=== PATIENT | male | born 1985 | race Caucasian/White ===

== ENCOUNTER 2021-07-22 20:36 | Emergency (ER) | payer OTHER ==
[2021-07-22] MEDS ORDERED: Ketorolac 30 MG/ML SDV IM ONE (21:10)
--- NOTE | 2021-07-22 21:38 | EDM.PDOC ---
ED HPI GENERAL MEDICAL PROBLEM - General Chief Complaint: Headache Stated Complaint: headache Time Seen by Provider: 07/22/21 20:55 Source of Information: Reports: Patient, RN History Limitations: Reports: No Limitations - History of Present Illness INITIAL COMMENTS - FREE TEXT/NARRATIVE: Patient here with second of her headache in his life. First headache was just over 10 years ago. He does not recall all of the ends coming to the headache. He does state he made it to the ER. The doctor said something to him. He passed out and all he remembers from that point forward with his parents picking him up in the ER. Today is day 4 of a continuous pulse/pressure in the forehead region. He has not taken anything for it as he has never taken anything for pain before. Nothing seems to make it better nothing seems to make it worse. He said it has been consistent for 4 days and does not seem to be letting up. Patient is not Covid vaccinated. He denies sick contacts. 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 Onset: Sudden Onset Date: 07/18/21 Duration: Constant Location: Reports: Head Quality: Reports: Ache, Pressure Severity: Severe Improves with: Reports: None Worsens with: Reports: None Context: Reports: Other (Patient has no known sick contacts. He has not had Covid. He does state he had a incident at the beginning of the initial Covid virus where he was down and out for about 2 weeks. He does not know if this was Covid or not. He has not been vaccinated.) Associated Symptoms: Reports: No Other Symptoms Middle Frontal Headache Pain Score (Numeric/FACES): 4 - Related Data Allergies Allergy/AdvReac Type Severity Reaction Status Date / Time azithromycin Allergy Nausea Verified 07/22/21 20:52 Home Meds: Home Meds NK [No Known Home Meds] 07/22/21 [History] Past Medical History Musculoskeletal History: Reports: Fracture Other Musculoskeletal History: broken mandible - Infectious Disease History Infectious Disease History: Reports: Chicken Pox - Past Surgical History GI Surgical History: Reports: Hernia, Abdominal, Hernia, Inguinal Other GI Surgeries/Procedures: laceration of the bladder , 2003 Social & Family History - Tobacco Use Tobacco Use Status *Q: Current Every Day Tobacco User Years of Tobacco use: 15 Packs/Tins Daily: 1 - Caffeine Use Caffeine Use: Reports: Coffee, Soda Caffeine Use Comment: 20oz coffee daily - Recreational Drug Use Recreational Drug Use: No ED ROS GENERAL - Review of Systems Review Of Systems: See Below Constitutional: Reports: No Symptoms HEENT: Denies: Hearing Loss, Vision Change Respiratory: Reports: No Symptoms Cardiovascular: Reports: No Symptoms Musculoskeletal: Reports: No Symptoms Skin: Reports: No Symptoms Neurological: Reports: Headache. Denies: Confusion, Dizziness, Numbness, Paresthesia, Pre-Existing Deficit, Seizure, Syncope, Tingling, Tremors, Trouble Speaking, Difficulty Walking, Weakness, Change in Speech, Gait Disturbance Psychiatric: Reports: No Symptoms Hematologic/Lymphatic: Reports: No Symptoms Immunologic: Reports: No Symptoms - Physical Exam Exam: See Below Exam Limited By: No Limitations General Appearance: Alert, WD/WN, Moderate Distress Eye Exam: Bilateral Eye: EOMI, Normal Inspection, PERRL Ears: Normal External Exam, Normal Canal, Hearing Grossly Normal, Normal TMs Nose: Normal Inspection, Normal Mucosa, No Blood Throat/Mouth: Normal Inspection, Normal Lips, Normal Teeth, Normal Gums, Normal Oropharynx, Normal Voice, No Airway Compromise Head Exam: Atraumatic, Normocephalic. No: Scalp Lacerations, Scalp Swelling, Scalp Abrasions, Scalp Tenderness, Facial Tenderness, Sinus Tenderness Neck: Normal Inspection, Supple, Non-Tender, Full Range of Motion Respiratory/Chest: No Respiratory Distress, Lungs Clear, Normal Breath Sounds, No Accessory Muscle Use, Chest Non-Tender Cardiovascular: Normal Peripheral Pulses, Regular Rate, Rhythm, No Edema, No Gallop, No JVD, No Murmur, No Rub GI/Abdominal: Normal Bowel Sounds, Soft, Non-Tender, No Organomegaly, No Distention, No Abnormal Bruit, No Mass, Pelvis Stable Neuro Exam (Abbreviated): Alert, Oriented, CN II-XII Intact, Normal Cognition, Normal Gait, Normal Reflexes, No Motor/Sensory Deficits Back Exam: Normal Inspection, Full Range of Motion Extremities: Normal Inspection, Normal Range of Motion, Non-Tender, No Pedal Edema, Normal Capillary Refill Psychiatric: Normal Affect, Normal Mood Skin Exam: Warm, Dry, Intact, Normal Color, No Rash Course - Vital Signs Last Recorded V/S: Last Vital Signs Temp 36.4 C 07/22/21 20:59 Pulse 87 07/22/21 20:59 Resp 16 07/22/21 20:59 BP 158/86 H 07/22/21 20:59 Pulse Ox 98 07/22/21 20:59 - Orders/Labs/Meds Orders: CT per radiology shows no abnormalities. No bleeds. Meds: Medications Discontinued Medications Generic Name Dose Route Start Last Admin Trade Name Tuyet PRN Reason Stop Dose Admin Ketorolac Tromethamine 30 mg 07/22/21 21:10 07/22/21 21:23 Ketorolac 30 Mg/Ml Sdv IM 07/22/21 21:11 30 mg ONETIME ONE Administration - Radiology Interpretation Free Text/Narrative:: CT per radiology read shows no acute intracranial abnormalities. CT Results Date: 07/22/21 - Re-Assessments/Exams Free Text/Narrative Re-Assessment/Exam: 07/22/21 21:59 Reassessment of patient. Toradol has worked well for the patient. His pain/pressure has significantly reduced. Patient notified of CT results. CT reviewed with patient. Educated patient on Tylenol/ibuprofen use per package instructions if a future headache occurs. 07/22/21 21:59 patient is very receptive to teaching and plan patient was discharged in satisfactory condition with improved headache and decreased pain 07/22/21 21:59 Departure - Departure Time of Disposition: 22:10 Disposition: Home, Self-Care 01 Condition: Fair Clinical Impression: Headache, Tension-type headache - Discharge Information *PRESCRIPTION DRUG MONITORING PROGRAM REVIEWED*: Not Applicable *COPY OF PRESCRIPTION DRUG MONITORING REPORT IN PATIENT KRISHNA: Not Applicable Instructions: General Headache Without Cause, Ibuprofen Oral Tablets and Capsules, Acetaminophen tablets or caplets Referrals: MYKEL MICHAUD [Other] Forms: ED Department Discharge Additional Instructions: Return to ER or clinic if symptoms worsen, difficulty with concentration, difficulty with vision or hearing, nausea vomiting or pain in head increases. Care Plan Goals: Pain-free with use of Tylenol and/or ibuprofen as recommended on packaging instructions. Sepsis Event Note (ED) - Evaluation Sepsis Screening Result: No Definite Risk - Assessment/Plan Assessment:: Headache without cause Plan: Discharge to home. Educated use of Tylenol and/or ibuprofen per package instructions. Patient is educated on reasons to return to the ER or clinic and to follow-up with his primary care provider if the headache continues.
--- NOTE | 2021-07-22 21:38 | CRLCT ---
For Patients: As a result of the Century Cures Act, medical imaging exams and procedure reports are released immediately into your electronic medical record. You may view this report before your referring provider. If you have questions, please contact your health care provider. INDICATION: Headache for 4 days. TECHNIQUE: CT head without contrast. COMPARISON: None. FINDINGS: CSF spaces: Within normal limits. Brain parenchyma: The whiteside-white differentiation is normal. No sign of mass, hemorrhage, or midline shift. Skull base and calvarium: The visualized paranasal sinuses and mastoid air cells demonstrate no acute or significant findings. The visualized orbits are grossly unremarkable. No skull fractures. Arachnoid granulations incidentally noted at the vertex. IMPRESSION: No acute intracranial abnormality. Please note that all CT scans at this facility use dose modulation, iterative reconstruction, and/or weight-based dosing when appropriate to reduce radiation dose to as low as reasonably achievable. Dictated by Mansoor Cifuentes MD @ 07/22/2021 9:36:[address] Mansoor Cifuentes @ Jul 22 2021 9:36PM
== END 2021-07-22 22:11 | disposition home or self-care (01) ==
LOC: JP.ED 20:36
DX: G44.209 Tension-type headache, unspecified, not intractable (principal); Z72.0 Tobacco use; Z88.1 Allergy status to other antibiotic agents
CPT/HCPCS: 70450; 96372; 99284; J1885

== ENCOUNTER 2024-09-15 21:19 | Emergency (ER) | payer SELFPAY ==
[2024-09-15 22:37] LABS: BASOPHILS ABSOLUTE AUTO 0.05 K/uL (0.00-0.10); BASOPHILS PERCENT AUTO 0.9 % (0.1-1.3); EOSINOPHILS ABSOLUTE AUTO 0.04 K/uL (0.00-0.40); EOSINOPHILS PERCENT AUTO 0.7 % (0.0-5.4); HEMATOCRIT 46.3 % (38.4-49.7); HEMOGLOBIN 15.7 g/dL (12.9-16.9); IMMATURE GRAN PERCENT AUTO 0.2 % (0.0-0.7); LYMPHOCYTES ABSOLUTE AUTO 1.61 K/uL (0.8-3.3); LYMPHOCYTES PERCENT AUTO 28.4 % (11.4-47.7); MEAN CORPUSCULAR HEMOGLOBIN 30.5 pg (31.6-35.5); MEAN CORPUSCULAR HGB CONC 33.9 g/dL (31.6-35.5); MEAN CORPUSCULAR VOLUME 90.1 fL (81.4-99.0); MONOCYTES ABSOLUTE AUTO 0.45 K/uL (0.20-0.90); NEUTROPHILS PERCENT AUTO 61.8 % (40.0-78.1); PLATELET COUNT,PLT 194 K/uL (130-375); RED BLOOD CELL COUNT 5.14 M/uL (4.14-5.76); WHITE BLOOD CELL COUNT,WBC 5.7 K/uL (3.2-11.0)
[2024-09-15 22:46] LABS: IMMATURE GRAN ABSOLUTE AUTO 0.01 K/uL (0.00-0.23)
[2024-09-15 22:53] LABS: AMPHETAMINES SCREEN, URINE NEGATIVE (NEGATIVE); BARBITURATE SCREEN,URINE NEGATIVE (NEGATIVE); BENZODIAZEPINES SCREEN,URINE NEGATIVE (NEGATIVE); METHADONE SCREEN, URINE NEGATIVE (NEGATIVE); METHAMPHETAMINES SCREEN, URINE NEGATIVE (NEGATIVE); OXYCODONE SCREEN,URINE NEGATIVE (NEGATIVE); PROPOXYPHENE SCREEN,URINE NEGATIVE (NEGATIVE); THC SCREEN,URINE 50 NG/ML NEGATIVE (NEGATIVE)
[2024-09-15 22:54] LABS: APPEARANCE,URINE CLEAR (CLEAR); BILIRUBIN,URINE NEGATIVE (NEGATIVE); COLOR,URINE YELLOW (YELLOW); GLUCOSE,URINE NEGATIVE (NEGATIVE); KETONES,URINE NEGATIVE (NEGATIVE); LEUKOCYTE ESTERASE,URINE NEGATIVE (NEGATIVE); NITRITE,URINE NEGATIVE (NEGATIVE); OCCULT BLOOD,URINE NEGATIVE (NEGATIVE); PH,URINE 6.5 (5.0-8.0); PROTEIN,URINE NEGATIVE (NEGATIVE); UROBILINOGEN,URINE 0.2 EU/dL (0.2-1.0)
[2024-09-15 23:00] LABS: A/G RATIO 1.1 (1.2-2.2); ALANINE AMINOTRANSFERASE,ALT 26 U/L (12-78); ALKALINE PHOSPHATASE 122 U/L (46-116); ANION GAP 7.2 mmol/L (5.0-14.0); ASPARTATE AMNIOTRANSFERASE,AST 25 U/L (15-37); BILIRUBIN TOTAL 0.4 mg/dL (0.2-1.0); BLOOD UREA NITROGEN,BUN 9 mg/dL (7-18); CALCIUM 9.3 mg/dL (8.5-10.1); CARBON DIOXIDE,CO2 31 mmol/L (21-32); CHLORIDE,CL 103 mmol/L (100-108); CREATININE 0.9 mg/dL (0.8-1.3); EST CRCL DRUG DOSING (CG) 108.01 mL/min; ESTIMATED GFR 110 mL/min (>60); GLUCOSE RANDOM 102 mg/dL (74-106); POTASSIUM,K 3.7 mmol/L (3.6-5.2); PROTEIN TOTAL,TP 7.8 g/dL (6.4-8.2); SODIUM,NA 141 mmol/L (140-148); T4 FREE 0.66 ng/dL (0.76-1.46)
[2024-09-15 23:00] LABS: AMORPHOUS SEDIMENT,URINE NOT SEEN; BACTERIA,URINE RARE; EPITHELIAL CELLS,URINE NOT SEEN; MUCUS,URINE NOT SEEN; RBC,URINE 0-5 (0-5); WBC,URINE 0-5 (0-5)
[2024-09-15 23:01] LABS: C-REACTIVE PROTEIN < 0.50 mg/dL (<0.50)
== END 2024-09-15 23:30 | disposition home or self-care (01) ==
LOC: JP.ED 21:19
DX: F45.21 Hypochondriasis (principal); Z88.1 Allergy status to other antibiotic agents
CPT/HCPCS: 36415; 80053; 80305-QW; 81001; 84439; 84443; 85025; 86140; 93005; 99285